=== PATIENT | female | born 1980 | race Caucasian/White ===

== ENCOUNTER 2018-01-15 20:03 | Emergency (ER) | payer MEDICAID ==
[~2018-01-15] VITALS: Ht 165.1 cm; Wt 81.6 kg
[~2018-01-15 20:03] MED LIST: LEVO500T20 PO
[2018-01-15 20:19] VITALS: BP_SYST 121
[2018-01-15 22:01] LABS: BILIRUBIN,URINE NEGATIVE (NEGATIVE); BLOOD, URINE 3+ (NEGATIVE); CLARITY/URINE HAZY (CLEAR); COLOR,URINE YELLOW (YELLOW); GLUCOSE,URINE NEGATIVE (NEGATIVE); KETONES,URINE NEGATIVE (NEGATIVE); LEUKOCYTE ESTERASE ,URINE 3+ (NEGATIVE); NITRITE, URINE NEGATIVE (NEGATIVE); PH,URINE 7.5 (5.0-8.0); PROTEIN URINE 2+ (NEGATIVE); UROBILINOGEN,URINE 0.2 (0.2-1.0)
[2018-01-15] MEDS ORDERED: KETOROLAC TROMETHAMINE 30 MG VIAL IVP ONE (22:15)
[2018-01-15] MEDS ORDERED: MORPHINE 2 MG/ML INJ. SYRINGE IVP ONE (22:15)
[2018-01-15] MEDS ORDERED: ONDANSETRON HCL 4 MG/2 ML VIAL IVP ONE (22:15)
[2018-01-15 22:25] LABS: BACTERIA,URINE MANY /HPF (None Seen); RBC,URINE 20-50 /HPF (0-3); WBC,URINE 80-100 /HPF (0-3)
[2018-01-15 22:26] LABS: MUCUS,URINE 2+ /LPF (None Seen); TRIPLE PHOSPHATE CRYSTAL,UR 0-10 /HPF (None Seen)
[2018-01-15 22:48] LABS: BARBITURATE, URINE NEGATIVE (NEG <=200); BENZODIAZEPINE, URINE NEGATIVE (NEG <=150); CANNABINOID, URINE POSITIVE (NEG <=50); COCAINE, URINE NEGATIVE (NEG <=150); METHAMPHETAMINES SCREEN,URINE POSITIVE (NEG <=500); OPIATE, URINE NEGATIVE (NEG <=100); PHENCYCLIDINE SCREEN,URINE NEGATIVE (NEG <=25); UR TRICYCLIC ANTIDEPRESSANTS NEGATIVE (NEG <=300); URINE AMPHETAMINE POSITIVE (NEG <=500); URINE METHADONE NEGATIVE (NEG <=200); URINE OXYCODONE SCREEN NEGATIVE (NEG <=100); URINE PROPOXYPHENE SCREEN NEGATIVE (NEG <=300)
[2018-01-15 22:58] LABS: CALCIUM 8.8 mg/dL (8.4-11.0); CREATININE 0.91 mg/dL (0.55-1.30); POTASSIUM 3.8 mmol/L (3.5-5.1)
[2018-01-15 23:00] LABS: BASOPHILS % (AUTO) 0.7 % (0.0-2.0); EOSINOPHILS # (AUTO) 0.2 K/uL (0.0-0.4); EOSINOPHILS % (AUTO) 2.5 % (0.0-4.0); HEMATOCRIT 27.6 % (36-48); HEMOGLOBIN 8.9 g/dL (12.0-16.0); LYMPHOCYTES # (AUTO) 1.9 K/uL (1.0-5.5); LYMPHOCYTES % (AUTO) 30.3 % (20.5-51.5); MEAN CORPUSCULAR HEMOGLOBIN 23 pg (27-31); MEAN CORPUSCULAR HGB CONC 32 % (32-36); MEAN CORPUSCULAR VOLUME 71 fL (79.0-98.0); MONOCYTES # (AUTO) 0.3 K/uL (0.0-1.0); MONOCYTES % (AUTO) 5.2 % (1.7-9.3); NEUTROPHILS # (AUTO) 3.8 K/uL (1.8-7.7); NEUTROPHILS % (AUTO) 61.3 % (40.0-70.0); PLATELET COUNT (AUTO) 340 K/uL (130-430); RED BLOOD CELL COUNT(AUTO) 3.89 MIL/uL (4.2-6.2); RED CELL DISTRIBUTION WIDTH 16.1 % (9.0-15.0); WHITE BLOOD COUNT (AUTO) 6.2 K/uL (4.8-10.8)
[2018-01-15 23:04] LABS: ALBUMIN 3.5 g/dL (3.4-4.8); TOTAL BILIRUBIN 0.3 mg/dL (0.0-1.0)
[2018-01-15 23:11] LABS: TOTAL IRON BIND. CAPACITY 437 ug/dL (250-450)
[2018-01-15] MEDS ORDERED: cefTRIAXone 1 GM in D5W 50 ML IV ONE (23:15)
[2018-01-15] MEDS ORDERED: cefTRIAXone 1 GM VIAL ONE (23:37)
[2018-01-16 00:37] VITALS: BP_SYST 118
== END 2018-01-16 00:37 | disposition home or self-care (01) ==
LOC: SED 20:03
DX: N20.0 Calculus of kidney (principal); F19.10 Other psychoactive substance abuse, uncomplicated; N39.0 Urinary tract infection, site not specified; D64.9 Anemia, unspecified; N18.9 Chronic kidney disease, unspecified; R03.0 Elevated blood-pressure reading, without diagnosis of hypertension; Z96.0 Presence of urogenital implants
CPT/HCPCS: 36415; 74018; 76770; 80053; 80307; 81000; 81025; 83540; 83550; 83690; 85025; 87040; 87086; 96365; 96375; 99285; J0696; J1885; J2270; J2405; 83605

== ENCOUNTER 2018-04-04 01:51 | Emergency (ER) | payer MEDICAID ==
[~2018-04-04] VITALS: Ht 165.1 cm; Wt 81.6 kg
[2018-04-04 02:00] VITALS: BP_SYST 152
[2018-04-04] MEDS ORDERED: KETOROLAC TROMETHAMINE 30 MG VIAL IVP ONE (02:15)
[2018-04-04] MEDS ORDERED: LEVOFLOXACIN 500 MG/D5W 100 ML IV ONE (02:15)
[2018-04-04] MEDS ORDERED: NACL 0.9% 1,000 ML IV ONE (02:15)
[2018-04-04 02:16] LABS: BILIRUBIN,URINE NEGATIVE (NEGATIVE); BLOOD, URINE 3+ (NEGATIVE); CLARITY/URINE HAZY (CLEAR); COLOR,URINE YELLOW (YELLOW); GLUCOSE,URINE NEGATIVE (NEGATIVE); KETONES,URINE NEGATIVE (NEGATIVE); LEUKOCYTE ESTERASE ,URINE 3+ (NEGATIVE); NITRITE, URINE NEGATIVE (NEGATIVE); PROTEIN URINE 2+ (NEGATIVE); UROBILINOGEN,URINE 0.2 (0.2-1.0)
[2018-04-04 02:45] LABS: BACTERIA,URINE MANY /HPF (None Seen); RBC,URINE 20-50 /HPF (0-3); WBC,URINE 80-100 /HPF (0-3)
[2018-04-04 04:55] VITALS: BP_SYST 152
== END 2018-04-04 04:55 | disposition home or self-care (01) ==
LOC: SED 01:51
DX: N39.0 Urinary tract infection, site not specified (principal); R03.0 Elevated blood-pressure reading, without diagnosis of hypertension; Z87.442 Personal history of urinary calculi
CPT/HCPCS: 36415; 74018; 81000; 87040; 87086; 87186; 96365; 96375; 99285; J1885; J1956; J7030

== ENCOUNTER 2018-09-08 20:14 | Emergency (ER) | payer MEDICAID ==
[~2018-09-08] VITALS: Ht 162.6 cm; Wt 79.4 kg
[2018-09-08 20:20] VITALS: BP_SYST 121
== END 2018-09-08 22:00 | disposition left against medical advice (07) ==
LOC: SED 20:14
DX: R10.9 Unspecified abdominal pain (principal); Z53.21 Procedure and treatment not carried out due to patient leaving prior to being seen by health care provider

== ENCOUNTER 2022-03-13 | Inpatient (IN) | payer MEDICAID ==
[~2022-03-13] VITALS: Ht 165.1 cm; Wt 76.7 kg
[2022-03-13 00:15] VITALS: BP_SYST 113
--- NOTE | 2022-03-13 00:18 | NUR ---
Patient to ER bed 7 to gown for evaluation. Side rails up. Report given to Charmaine campbell.
--- NOTE | 2022-03-13 00:30 | NUR ---
Pt from home with c/o of LRQ pain that started a few day ago, fever at home. Pt A&o x4, ambulatory and following commands. Pt tachycardic at 115, made aware.
--- NOTE | 2022-03-13 00:45 | NUR ---
at bedside for evaluation.
[2022-03-13] MEDS ORDERED: MORPHINE 4 MG INJ. 4 MG/ML VIAL IVP ONE (01:15)
[2022-03-13] MEDS ORDERED: ONDANSETRON HCL 4 MG/2 ML VIAL IVP ONE (01:15)
[2022-03-13 01:26] LABS: HEMATOCRIT 26.4 % (36-48); MEAN CORPUSCULAR VOLUME 69 fL (79.0-98.0); PLATELET COUNT (AUTO) 207 K/uL (130-430); RED BLOOD CELL COUNT(AUTO) 3.84 MIL/uL (4.2-6.2); RED CELL DISTRIBUTION WIDTH 17.8 % (9.0-15.0); WHITE BLOOD COUNT (AUTO) 10.3 K/uL (4.8-10.8)
[2022-03-13 01:52] LABS: BILIRUBIN,URINE NEGATIVE (NEGATIVE); BLOOD, URINE 2+ (NEGATIVE); COLOR,URINE YELLOW (YELLOW); GLUCOSE,URINE NEGATIVE (NEGATIVE); KETONES,URINE NEGATIVE (NEGATIVE); LEUKOCYTE ESTERASE ,URINE 3+ (NEGATIVE); NITRITE, URINE POSITIVE (NEGATIVE); PROTEIN URINE 2+ (NEGATIVE)
[2022-03-13 01:57] LABS: CLARITY/URINE HAZY (CLEAR)
[2022-03-13] MEDS ORDERED: NACL 0.9% 1,000 ML IV ONE ×2 (02:00→12:00)
[2022-03-13 02:04] LABS: BACTERIA,URINE MANY /HPF (None Seen); MUCUS,URINE 1+ /LPF (None Seen)
[2022-03-13 02:05] LABS: CALCIUM 8.7 mg/dL (8.4-11.0); CREATININE 1.69 mg/dL (0.55-1.30)
[2022-03-13 02:10] LABS: POTASSIUM 2.9 mmol/L (3.5-5.1)
[2022-03-13 02:11] LABS: ALBUMIN 2.3 g/dL (3.4-4.8); TOTAL BILIRUBIN 1.3 mg/dL (0.0-1.0)
[2022-03-13 02:41] LABS: BAND % (MANUAL) 2 % (0-6); LYMPHOCYTES % (MANUAL) 9 % (20-46)
[2022-03-13 02:42] LABS: BASOPHILS % (MANUAL) 0 % (0-2); EOSINOPHILS % (MANUAL) 0 % (0-7); MONOCYTES % (MANUAL) 1 % (0-11)
[2022-03-13] MEDS ORDERED: cefTRIAXone 2 GM VIAL ONE (02:55)
[2022-03-13] MEDS ORDERED: POTASSIUM CHLORIDE 20 MEQ TAB.PRT.SR PO ONE ×2 (04:00→17:30)
[2022-03-13] MEDS ORDERED: KCL 10 mEq in 50 mL (PREMIX) 50 ML IV ONE ×2 (04:00→06:30)
[2022-03-13] MEDS ORDERED: POTASSIUM CHLORIDE 10 MEQ in NACL 0.9% 1,000 ML IV SCH (04:00)
[2022-03-13] MEDS ORDERED: POTASSIUM CHLORIDE 10 MEQ in NACL 0.9% 1,000 ML IV ONE (06:54)
--- NOTE | 2022-03-13 07:18 | NUR ---
Report given to Marissa MARROQUIN.
--- NOTE | 2022-03-13 08:02 | NUR ---
Pt resting in bed NAD, bed down rails up, pt c/o tiredness. aox4. IV fluids flowing no infilltration noted at IV site right hand.
--- NOTE | 2022-03-13 08:27 | NUR ---
Pt served breakfast sitting up eating without complaint.
--- NOTE | 2022-03-13 11:16 | NUR ---
adm Admit bed requested Patient will be admitted to care of Blayne Hsu. Admitted to Med Surg. unit. Diagnosis pylenophritis and acute renal failure Inpatient (Yes or No) yes Observation (Yes or No) yes Orientation concerns or request close to nursing station (Yes or No) no Covid Status pending On vent or bipap no Isolation requirements no Needs a sitter no From Home (Yes or if No enter name of facility) no Requires Dialysis (Yes or No) no Med Rec Completed (Yes of No) pending
[2022-03-13] MEDS ORDERED: ONDANSETRON HCL 4 MG/2 ML VIAL IVP PRN (12:00)
--- NOTE | 2022-03-13 12:59 | NUR ---
Pt eating lunch, ambulates to restroom with steady gait. No complaints at this time.
--- NOTE | 2022-03-13 13:57 | NUR ---
Report received from CARA Ann for continuity of care. Patient stable condition. No distress noted.
--- NOTE | 2022-03-13 13:58 | NUR ---
Patient arrived to room via gurney. Patient is alert and oriented x4. Respiration even and unlabored. No shortness of breath. Patient responsive to admission questions. No c/o pain. Patient denies PMH and any other illness. Patient has IV on hand that has IVF running. No skin issues. Oriented patient to hospital room. Will continue to monitor. Call light within reach.
--- NOTE | 2022-03-13 14:00 | NUR ---
Patient will be admitted to [facility] Admitted to Med surg unit. Belongings list completed. Complete and up to date summary report printed. SBAR report to be given at bedside with opportunity for questions.
[2022-03-13 14:15] VITALS: BP_SYST 134
[2022-03-13 14:37] VITALS: BP_SYST 117
[2022-03-13] MEDS ORDERED: DOCUSATE SODIUM 250 MG CAPSULE PO ONE (14:45)
[2022-03-13] MEDS ORDERED: LACTULOSE 20 GM/30 ML UDC PO ONE (14:45)
[2022-03-13] MEDS ORDERED: BISACODYL 10 MG/SUPPOSITORY RC PRN (14:45)
[2022-03-13 16:00] VITALS: BP_SYST 120
[2022-03-13 16:01] LABS: BASOPHILS % (AUTO) 0.2 % (0.0-2.0); EOSINOPHILS # (AUTO) 0.1 K/uL (0.0-0.4); EOSINOPHILS % (AUTO) 1.2 % (0.0-4.0); HEMATOCRIT 24.4 % (36-48); LYMPHOCYTES # (AUTO) 0.7 K/uL (1.0-5.5); LYMPHOCYTES % (AUTO) 9.4 % (20.5-51.5); MONOCYTES % (AUTO) 12.1 % (1.7-9.3); NEUTROPHILS # (AUTO) 6.1 K/uL (1.8-7.7); NEUTROPHILS % (AUTO) 77.1 % (40.0-70.0); PLATELET COUNT (AUTO) 188 K/uL (130-430); RED BLOOD CELL COUNT(AUTO) 3.53 MIL/uL (4.2-6.2); RED CELL DISTRIBUTION WIDTH 17.8 % (9.0-15.0); WHITE BLOOD COUNT (AUTO) 7.9 K/uL (4.8-10.8)
[2022-03-13 16:03] LABS: MEAN CORPUSCULAR VOLUME 69 fL (79.0-98.0)
[2022-03-13 16:18] LABS: CALCIUM 8.1 mg/dL (8.4-11.0); CREATININE 1.43 mg/dL (0.55-1.30); PHOSPHORUS 2.1 mg/dL (2.7-4.5); POTASSIUM 3.4 mmol/L (3.5-5.1)
[2022-03-13 16:35] LABS: INR 0.9 (0.8-1.2); PROTHROMBIN TIME 9.6 SECS (9.5-12.5)
[2022-03-13] MEDS ORDERED: ACETAMINOPHEN 325 MG TABLET PO PRN (17:45)
[2022-03-13] MEDS ORDERED: ACETAMINOPHEN 325 MG TABLET PO ONE (17:45)
--- NOTE | 2022-03-13 17:45 | NUR ---
Dr. Rendon made aware of latest potassium result. New orders noted and carried out.
[2022-03-13] MEDS: PIPERACILLIN/TAZO 3.375 GM in NS 50 ML IV SCH (17:51)
--- NOTE | 2022-03-13 18:45 | NUR ---
Patient resting at the moment. Patient able to eat dinner.
--- NOTE | 2022-03-13 19:00 | NUR ---
received pt from day ure. report giving at bedside. pt alert, awake and stable at this time. no c/o pain noted. vitals taken and within normal limits resp even while on RA. skin warm to touch and clean and dry. 20g to right hand pt and intact with ivf running. educate pt how to use call light in place bed to lowest position.
[2022-03-13 19:51] LABS: HEMOGLOBIN 7.6 g/dL (12.0-16.0)
[2022-03-13 19:52] LABS: MEAN CORPUSCULAR HEMOGLOBIN 22 pg (27-31); MEAN CORPUSCULAR HGB CONC 31 % (32-36)
--- NOTE | 2022-03-13 21:30 | NUR ---
called Dr Rendon and made aware of pt hemoglobin of 7.6. dr renodn said labs might be a false reading and that he order labs in AM
[2022-03-13 21:39] VITALS: BP_SYST 102
[2022-03-13] MEDS: LACTULOSE 20 GM/30 ML UDC PO SCH (22:12)
[2022-03-13] MEDS: DOCUSATE SODIUM 250 MG CAPSULE PO SCH (22:12)
[2022-03-14] MEDS: PIPERACILLIN/TAZO 3.375 GM in NS 50 ML IV SCH ×4 (00:11→16:55)
--- NOTE | 2022-03-14 06:17 | NUR ---
called place to Dr Rivers for consult, left msg. will have day shift f/u
[2022-03-14 07:03] LABS: BASOPHILS % (AUTO) 0.4 % (0.0-2.0); EOSINOPHILS # (AUTO) 0.1 K/uL (0.0-0.4); EOSINOPHILS % (AUTO) 1.8 % (0.0-4.0); HEMOGLOBIN 7.1 g/dL (12.0-16.0); LYMPHOCYTES % (AUTO) 16.7 % (20.5-51.5); MEAN CORPUSCULAR HEMOGLOBIN 22 pg (27-31); MEAN CORPUSCULAR HGB CONC 32 % (32-36); MEAN CORPUSCULAR VOLUME 69 fL (79.0-98.0); MONOCYTES # (AUTO) 0.8 K/uL (0.0-1.0); NEUTROPHILS % (AUTO) 68.1 % (40.0-70.0); PLATELET COUNT (AUTO) 200 K/uL (130-430); RED CELL DISTRIBUTION WIDTH 18.1 % (9.0-15.0); WHITE BLOOD COUNT (AUTO) 5.9 K/uL (4.8-10.8)
--- NOTE | 2022-03-14 07:30 | NUR ---
Report received from night shift manager RN for continuity of care. No distress noted.
--- NOTE | 2022-03-14 07:30 | NUR ---
Report received from optometrist president/practice owner RN for continuity of care. No distress noted.
[2022-03-14 07:48] VITALS: BP_SYST 110
[2022-03-14 08:48] LABS: HEMATOCRIT 21.9 % (36-48)
[2022-03-14] MEDS ORDERED: POTASSIUM CHLORIDE 20 MEQ TAB.PRT.SR PO SCH (09:00)
[2022-03-14 09:12] LABS: TOTAL IRON BIND. CAPACITY 236 ug/dL (250-450)
[2022-03-14 10:03] LABS: ALBUMIN 1.8 g/dL (3.4-4.8); CALCIUM 8.2 mg/dL (8.4-11.0); CREATININE 1.35 mg/dL (0.55-1.30); FREE T4 (FREE THYROXINE) 1.3 ng/dl (0.8-1.5); THYROID STIMULATING HORMONE 0.77 uIu/mL (0.36-3.74); TOTAL BILIRUBIN 0.7 mg/dL (0.0-1.0)
[2022-03-14] MEDS: LACTULOSE 20 GM/30 ML UDC PO SCH (10:18)
[2022-03-14] MEDS: DOCUSATE SODIUM 250 MG CAPSULE PO SCH (10:18)
--- NOTE | 2022-03-14 11:03 | NUR ---
Dr. Rendon made aware of HGB and HCT result. No new orders at this time.
[2022-03-14 14:39] VITALS: BP_SYST 124
[2022-03-14] MEDS ORDERED: EPOETIN ALFA-EPBX 4,000 UNITS/ML VIAL SUBCUT SCH (17:00)
[2022-03-14 17:07] VITALS: BP_SYST 126
--- NOTE | 2022-03-14 17:24 | NUR ---
Patient refused further medications. Saw patient wearing regular clothes in nursing station. Patient said she "did not want to be in [facility]" anymore and "wanted to go to [facility] instead." Patient signed AMA papers. Educated patient about risks of leaving AMA. Patient still wanted to go. IV removed. Dr. Rendon made aware of situation.
[2022-03-14] MEDS ORDERED: SOD FERRIC GLUC COMPLEX/SUC 125 MG in NS 100 ML IV SCH (18:00)
[2022-03-14] MEDS ORDERED: ACETAMINOPHEN 325 MG TABLET PO PRN (18:30)
--- NOTE | 2022-03-14 19:30 | NUR ---
Report given to car shifter RN for continuity of care. No distress.
--- NOTE | 2022-03-14 19:46 | NUR ---
RIR form written: for patient who left AMA: Unique Id: [id number]
[2022-03-14] MEDS ORDERED: LACTOBACILLUS RHAMNOSUS GG 1 CAP CAPSULE PO SCH (21:00)
[2022-03-14] MEDS ORDERED: MULTIVITAMINS TAB 1 TABLET PO SCH (21:00)
[2022-03-14] MEDS ORDERED: CIPROFLOXACIN HCL 500 MG TABLET PO SCH (22:00)
[2022-03-15 08:06] LABS: FOLATE (FOLIC ACID) 7.3 ng/mL (>3.0)
[2022-03-15] MEDS ORDERED: LACTULOSE 20 GM/30 ML UDC PO SCH (09:00)
== END 2022-03-14 17:53 | disposition left against medical advice (07) | DRG 463 ==
LOC: SED → SMU 11:47
PROVIDERS: ADMIT Internal Medicine; ATTEND Internal Medicine
DX: N10 Acute pyelonephritis (principal); N17.0 Acute kidney failure with tubular necrosis; E43 Unspecified severe protein-calorie malnutrition; Z20.822 Contact with and (suspected) exposure to COVID-19; E87.6 Hypokalemia; E86.0 Dehydration; Z53.29 Procedure and treatment not carried out because of patient's decision for other reasons; K59.00 Constipation, unspecified; D50.9 Iron deficiency anemia, unspecified; Z68.28 Body mass index [BMI] 28.0-28.9, adult; Z87.442 Personal history of urinary calculi
CPT/HCPCS: 36415; 76376; 76700-TC; 80048; 80053; 81000; 82272; 82607; 82746; 83540; 83550; 83605; 83735; 84100; 84439; 84443; 84702; 85007; 85025; 85027; 85610-TC; 85730-TC; 86870; 86886; 86900; 86901; 87040; 87086; 96361; 96365; 96375; 99285; J0696; J2270; J2405; J2543; J2916; J3480; J7030; Q5106